=== PATIENT | male | born 1975 | race Hispanic/Latino ===

== ENCOUNTER 2019-10-06 09:45 | Emergency (ER) | payer BC, SELFPAY ==
[2019-10-06 11:21] LABS: Absolute Lymphocytes (CBC) 1.1 K/uL (0.7-4.9); Basophils % 0.4 % (0-1.3); Hematocrit 48.2 % (39.6-49.0); Lymphocytes % 17.9 % (15.3-44.8); MPV 8.7 fL (7.6-11.3); RBC Red Blood Cell Count 5.42 M/uL (4.33-5.43)
[2019-10-06 11:30] LABS: Protime INR 1.04
[2019-10-06 11:48] LABS: ALT/SGPT 55 U/L (12-78); AST/SGOT 24 U/L (15-37); Alkaline Phosphatase 57 U/L (45-117); BUN Blood Urea Nitrogen 15 mg/dL (7-18); Bicarbonate 30 mmol/L (21-32); Bilirubin Direct 0.1 mg/dL (0-0.2); Bilirubin Total 0.6 mg/dL (0.2-1.0); Glucose Level 160 mg/dL (74-106); Magnesium 2.4 mg/dL (1.8-2.4); NT PRO-BNP 21 pg/mL (<125); Sodium Level 140 mmol/L (136-145); Troponin (Emerg Dept Use Only) < 0.02 ng/mL (0.0-0.045)
--- NOTE | 2019-10-06 11:51 | EKG ---
Test Date: 2019-10-06 Test Time: 09:57:51 Utility Helicopter Repairer: KHADRA MEASUREMENT RESULTS: Intervals: Rate: 73 NH: 158 QRSD: 92 QT: 394 QTc: 434 [place]: P: 55 NH: 158 QRS: 17 T: 25 INTERPRETIVE STATEMENTS: Normal sinus rhythm Normal ECG Compared to ECG 08/06/2018 16:22:59 ST (T wave) deviation no longer present Electronically Signed On 10-06-19 11:51:12 GUARD MANAGER by Tanvir Bruce
--- NOTE | 2019-10-06 12:09 | RAD REPORT ---
EXAM DESCRIPTION: RAD - Chest Single View - 10/06/2019 12:04 pm CLINICAL HISTORY: CHEST PAIN COMPARISON: No comparisons TECHNIQUE: AP portable chest image was obtained 10/06/2019 12:04 pm . FINDINGS: Lungs are clear. Heart and vasculature are normal. No measurable pleural effusion and no p neumothorax. No acute bony abnormality seen. No acute aortic findings suspected. IMPRESSION: No acute cardiopulmonary process.
--- NOTE | 2019-10-06 12:22 | ER ---
Nurse's Notes [facility] Name: Vincent Kumari Age: 44 yrs Sex: Male : 1975 Arrival Date: 10/06/2019 Time: 09:47 Bed 23 Private MD: Diagnosis: Chest pain, unspecified Presentation: 10/06 09:52 Presenting complaint: Patient states: Reports that he started having chest pain Saturday sv and it kept getting worse with SOB, went to his PCP today and they did an EKG and sent him here. Reports feeling dizziness and SOB at this time but denies CP. Transition of care: patient was not received from another setting of care. Onset of symptoms was October 04, 2019. Risk Assessment: Do you want to hurt yourself or someone else? Patient reports no desire to harm self or others. Care prior to arrival: None. 09:52 Method Of Arrival: Ambulatory sv 09:52 Acuity: MAIDA 3 sv 10:20 Initial Sepsis Screen: Does the patient meet any 2 criteria? No. Patient's initial ca1 sepsis screen is negative. Does the patient have a suspected source of infection? No. Patient's initial sepsis screen is negative. Historical: - Allergies: 09:53 No Known Allergies; sv - PMHx: 09:53 None; sv - PSHx: 09:53 None; sv - Immunization history:: Adult Immunizations up to date. - Coronavirus screen:: The patient has NOT traveled to [place] in the past 14 days. Proceed with normal triage process as indicated. The patient has NOT had contact with known/suspected case of Coronavirus? Proceed with normal triage procedures. - Social history:: Smoking status: Patient denies any tobacco usage or history of. - Ebola Screening: : No symptoms or risks identified at this time. Screenin:06 Abuse screen: Denies threats or abuse. Denies injuries from another. Nutritional ca1 screening: No deficits noted. Tuberculosis screening: No symptoms or risk factors identified. Fall Risk IV access (20 points). Assessment: 10:06 General: Appears in no apparent distress. comfortable, Behavior is calm, cooperative, ca1 appropriate for age. Pain: Complains of pain in xyphoid area and mid-sternal area Pain does not radiate. Pain currently is 1 out of 10 on a pain scale. Quality of pain is described as sore Pain began 2-3 days ago. Is intermittent. Pain: Also complains of shortness of breath. Neuro: Level of Consciousness is awake, alert, obeys commands, Oriented to person, place, time, situation, Appropriate for age. Cardiovascular: Heart tones S1 S2 present Capillary refill < 3 seconds Patient's skin is warm and dry. Respiratory: Airway is patent Respiratory effort is even, unlabored, Respiratory pattern is regular, symmetrical, Breath sounds are clear bilaterally. GI: Abdomen is round non-distended, Bowel sounds present X 4 quads. Abd is soft and non tender X 4 quads. : No signs and/or symptoms were reported regarding the genitourinary system. EENT: No signs and/or symptoms were reported regarding the EENT system. Derm: Skin is intact, is healthy with good turgor, Skin is pink, warm \T\ dry. Musculoskeletal: Circulation, motion, and sensation intact. Capillary refill < 3 seconds. 11:10 Reassessment: Patient appears in no apparent distress at this time. Patient and/or ca1 family updated on plan of care and expected duration. Pain level reassessed. Patient is alert, oriented x 3, equal unlabored respirations, skin warm/dry/pink. 12:19 Reassessment: Patient appears in no apparent distress at this time. Patient and/or ca1 family updated on plan of care and expected duration. Pain level reassessed. Patient is alert, oriented x 3, equal unlabored respirations, skin warm/dry/pink. 12:50 Reassessment: Patient appears in no apparent distress at this time. Patient is alert, ca1 oriented x 3, equal unlabored respirations, skin warm/dry/pink. Vital Signs: 09:53 BP 159 / 86; Pulse 75; Resp 18; Temp 97.6; Pulse Ox 100% ; Weight 103.87 kg; Height 5 sv ft. 9 in. (175.26 cm); Pain 2/10; 11:10 BP 133 / 85; Pulse 64; Resp 16 S; Pulse Ox 98% on R/A; ca1 12:19 BP 123 / 89; Pulse 70; Resp 15 S; Pulse Ox 99% on R/A; ca1 12:50 BP 123 / 78; Pulse 63; Resp 16 S; Pulse Ox 100% on R/A; ca1 09:53 Body Mass Index 33.82 (103.87 kg, 175.26 cm) sv ED Course: 09:47 Patient arrived in ED. rg4 09:53 Triage completed. sv 09:54 Arm band placed on. sv 09:59 EKG done, by helpdesk technician. reviewed by Alfonso Lainez MD. at1 10:01 Ama Weeks, RN is Primary Nurse. ca1 10:06 Patient has correct armband on for positive identification. Placed in gown. Bed in low ca1 position. Call light in reach. Side rails up X 1. monitoring and evaluation advisor on. Pulse ox on. NIBP on. Warm blanket given. 10:06 No provider procedures requiring assistance completed. ca1 10:07 Alfonso Lainez MD is Attending Physician. kdr 11:10 Initial lab(s) drawn, by me, sent to lab. Inserted saline lock: 20 gauge in right ca1 antecubital area, using aseptic technique. Blood collected. 12:04 XRAY Chest (1 view) In Process Unspecified. EDMS 13:02 IV discontinued, intact, bleeding controlled, No redness/swelling at site. Pressure ca1 dressing applied. Administered Medications: No medications were administered Outcome: 12:22 Discharge ordered by . kdr 13:02 Discharged to home ambulatory, with significant other. ca1 13:02 Condition: stable 13:02 Discharge instructions given to patient, Instructed on discharge instructions, follow up and referral plans. medication usage, Demonstrated understanding of instructions, follow-up care, medications, Prescriptions given X 1. 13:02 Patient left the ED. ca1 Signatures: Dispatcher [employer] EDMS Haleigh Balderas RN RN Alfonso Lainez MD MD kdr Cherise Barlow, licensed pesticide applicator EKG Tat1 Bekah Ross rg4 Ama Weeks, RN RN ca1
--- NOTE | 2019-10-06 12:22 | EDPHYS ---
Physician Documentation [facility] Name: Vincent Kumari Age: 44 yrs Sex: Male : 1975 Arrival Date: 10/06/2019 Time: 09:47 Bed 23 Private MD: ED Physician Alfonso Lainez HPI: 10/06 16:29 This 44 yrs old Male presents to ER via Ambulatory with complaints of Abnormal kdr EKG. 16:29 The patient or guardian reports chest pain that is located primarily in the anterior kdr chest wall, left. Onset: , Saturday. The pain does not radiate. Associated signs and symptoms: Pertinent positives: None. The chest pain is described as aching, burning, dull, a pressure. Duration: The patient or guardian reports multiple episodes, that are intermittent, that wax and wane, with no pattern. Modifying factors: The symptoms are alleviated by nothing. the symptoms are aggravated by nothing. Severity of pain: At its worst the pain was mild in the emergency department the pain has improved. The patient has experienced similar episodes in the past, The has been ongoing for months and is now . The patient has not recently seen a physician. Historical: - Allergies: 09:53 No Known Allergies; sv - PMHx: 09:53 None; sv - PSHx: 09:53 None; sv - Immunization history:: Adult Immunizations up to date. - Coronavirus screen:: The patient has NOT traveled to [place] in the past 14 days. Proceed with normal triage process as indicated. The patient has NOT had contact with known/suspected case of Coronavirus? Proceed with normal triage procedures. - Social history:: Smoking status: Patient denies any tobacco usage or history of. - Ebola Screening: : No symptoms or risks identified at this time. ROS: 16:29 Constitutional: Negative for fever, chills, and weight loss, Eyes: Negative for injury, kdr pain, redness, and discharge, ENT: Negative for injury, pain, and discharge, Neck: Negative for injury, pain, and swelling, Respiratory: Negative for shortness of breath, cough, wheezing, and pleuritic chest pain, Abdomen/GI: Negative for abdominal pain, nausea, vomiting, diarrhea, and constipation, Back: Negative for injury and pain, : Negative for injury, bleeding, discharge, and swelling, MS/Extremity: Negative for injury and deformity, Skin: Negative for injury, rash, and discoloration, Neuro: Negative for headache, weakness, numbness, tingling, and seizure activity. Psych: Negative for depression, anxiety, suicide ideation, homicidal ideation, and hallucinations, Allergy/Immunology: Negative for hives, rash, and allergies, Endocrine: Negative for neck swelling, polydipsia, polyuria, polyphagia, and marked weight changes, Hematologic/Lymphatic: Negative for swollen nodes, abnormal bleeding, and unusual bruising. 16:29 Cardiovascular: Positive for chest pain, of the left clavicle and anterior aspect of left upper chest. Exam: 16:29 Constitutional: This is a well developed, well nourished patient who is awake, alert, kdr and in no acute distress. Head/Face: Normocephalic, atraumatic. Eyes: Pupils equal round and reactive to light, extra-ocular motions intact. Lids and lashes normal. Conjunctiva and sclera are non-icteric and not injected. Cornea within normal limits. Periorbital areas with no swelling, redness, or edema. Neck: Trachea midline, no thyromegaly or masses palpated, and no cervical lymphadenopathy. Supple, full range of motion without nuchal rigidity, or vertebral point tenderness. No Meningismus. Chest/axilla: Normal chest wall appearance and motion. Nontender with no deformity. No lesions are appreciated. Cardiovascular: Regular rate and rhythm with a normal S1 and S2. No gallops, murmurs, or rubs. Normal PMI, no JVD. No pulse deficits. Respiratory: Lungs have equal breath sounds bilaterally, clear to auscultation and percussion. No rales, rhonchi or wheezes noted. No increased work of breathing, no retractions or nasal flaring. Abdomen/GI: Soft, non-tender, with normal bowel sounds. No distension or tympany. No guarding or rebound. No evidence of tenderness throughout. Back: No spinal tenderness. No costovertebral tenderness. Full range of motion. Skin: Warm, dry with normal turgor. Normal color with no rashes, no lesions, and no evidence of cellulitis. MS/ Extremity: Pulses equal, no cyanosis. Neurovascular intact. Full, normal range of motion. Neuro: Awake and alert, GCS 15, oriented to person, place, time, and situation. Cranial nerves II-XII grossly intact. Motor strength 5/5 in all extremities. Sensory grossly intact. Cerebellar exam normal. Normal gait. Psych: Awake, alert, with orientation to person, place and time. Behavior, mood, and affect are within normal limits. Vital Signs: 09:53 BP 159 / 86; Pulse 75; Resp 18; Temp 97.6; Pulse Ox 100% ; Weight 103.87 kg; Height 5 sv ft. 9 in. (175.26 cm); Pain 2/10; 11:10 BP 133 / 85; Pulse 64; Resp 16 S; Pulse Ox 98% on R/A; ca1 12:19 BP 123 / 89; Pulse 70; Resp 15 S; Pulse Ox 99% on R/A; ca1 12:50 BP 123 / 78; Pulse 63; Resp 16 S; Pulse Ox 100% on R/A; ca1 09:53 Body Mass Index 33.82 (103.87 kg, 175.26 cm) sv MDM: 12:22 Patient medically screened. kdr 16:29 Differential diagnosis: abnormal EKG, acute myocardial infarction, acute pericarditis, kdr anxiety, myocarditis, pancreatitis. Data reviewed: vital signs, nurses notes, lab test result(s), EKG, radiologic studies. Data interpreted: allergy and immunology chief:. 10/06 10:51 Order name: Basic Metabolic Panel; Complete Time: 12:20 [facility] 10/06 10:51 Order name: CBC with Diff; Complete Time: 11:34 [facility] 10/06 10:51 Order name: LFT's; Complete Time: 12:20 [facility] 10/06 10:51 Order name: Magnesium; Complete Time: 12:20 [facility] 10/06 10:51 Order name: NT PRO-BNP; Complete Time: 12:20 [facility] 10/06 10:51 Order name: PT-INR; Complete Time: 12:20 [facility] 10/06 09:59 Order name: EKG; Complete Time: 10:01 10/06 09:59 Order name: EKG - Nurse/Tech; Complete Time: 10:02 10/06 10:51 Order name: Troponin (emerg Dept Use Only); Complete Time: 12:20 [facility] 10/06 10:51 Order name: XRAY Chest (1 view); Complete Time: 12:20 [facility] 10/06 10:51 Order name: Cardiac monitoring; Complete Time: 11:30 [facility] 10/06 10:51 Order name: IV Saline Lock; Complete Time: [facility] 10/06 10:51 Order name: Labs collected and sent; Complete Time: [facility] 10/06 10:51 Order name: O2 Per Protocol; Complete Time: [facility] 10/06 10:51 Order name: O2 Sat Monitoring; Complete Time: kdr Administered Medications: No medications were administered Disposition: 10/06/19 12:22 Discharged to Home. Impression: Chest pain, unspecified. - Condition is Stable. - Discharge Instructions: Nonspecific Chest Pain, [id number]. - Prescriptions for Pepcid 20 mg Oral Tablet - take 1 tablet by ORAL route every 12 hours for 10 days; 20 tablet. - Medication Reconciliation Form, Thank You Letter, Work release form, Family Work Release form. - Follow up: Private Physician; When: 2 - 3 days; Reason: If symptoms return, Further diagnostic work-up, Recheck today's complaints, Continuance of care, Re-evaluation by your physician. - Problem is new. - Symptoms have improved. Signatures: Dispatcher [employer] EDHaleigh Frederick RN RN sv Alfonso Lainez MD MD [facility] Acjillian, SHABBIR Serrato RN ca1 Corrections: (The following items were deleted from the chart) 13:02 12:22 10/06/2019 12:22 Discharged to Home. Impression: Chest pain, unspecified. ca1 Condition is Stable. Forms are Medication Reconciliation Form, Thank You Letter, Antibiotic Education, Prescription Opioid Use. Follow up: Private Physician; When: 2 - 3 days; Reason: If symptoms return, Further diagnostic work-up, Recheck today's complaints, Continuance of care, Re-evaluation by your physician. Problem is new. Symptoms have improved. kdr
[2019-10-06 13:23] VITALS: TEMP 97.6
[2019-10-06 13:27] VITALS: BP 123/78; O2SAT 100
== END 2019-10-06 13:02 | disposition home or self-care (01) ==
LOC: ER 09:45
DX: R07.9 Chest pain, unspecified (principal)
CPT/HCPCS: 36415; 71045; 80048; 80076; 83735; 83880; 84484; 85025; 85610; 93005; 99284

== ENCOUNTER 2020-12-10 23:03 | Emergency (ER) | payer BC ==
--- OUTSIDE RECORDS SUMMARY | 2020-12-10 23:06 | XMS REPORT | Continuity of Care Document ---
:1975 Author Organization [facility] t Address [address] [place] [address] [address]. [address] [place] [address] Care Team Providers Name Role Phone Bright EDMONDSON Primary Care Physician Lab, Fam Pob I Attending Clinician Unavailable Problems This patient has no known problems. Allergies, Adverse Reactions, Alerts This patient has no known allergies or adverse reactions. Social History Social Habit Start Date Stop Date Quantity Comments Source Sex Assigned At [birth year] [facility] 00:00:00 00:00:00 Medications This patient has no known medications. Procedures This patient has no known procedures. Plan of Care Planned Activity Planned Date Details Comments Source Future Scheduled 2021-03-12 INFLUENZA VACCINE Pooja michelle [facility] Test 00:00:00 [code = INFLUENZA VACCINE] Future Scheduled 1991 Hepatitis C [place] [facility] Test 00:00:00 screening (procedure) [code = 529854736] Future Scheduled 1989 COVID-19 VACCINE (1) Moiz mitchell [facility] Test 00:00:00 [code = COVID-19 VACCINE (1)] Encounters Start End Encounter Admission Attending Care Care Encounter Source Date/Time Date/Time Type Type Clinicians Facility Department ID 2020-07-08 2020-07-08 Laboratory Lab, Adc [facility] [id number] 08:00:58 08:20:58 Only Fam [facility] [id number] [place] [id number] Professio [id number] nal [address] 2020-03-09 2020-03-09 Laboratory Lab, Adc [facility] [id number] 11:12:55 11:32:[address] [facility] I [facility] [id number] [place] [id number] Onel [phone] [facility] [address] Results This patient has no known results.
[2020-12-11 00:10] LABS: Absolute Lymphocytes (CBC) 1.6 K/uL (0.7-4.9); Basophils % 0.4 % (0-1.3); Hematocrit 44.9 % (39.6-49.0); Lymphocytes % 21.4 % (15.3-44.8); RBC Red Blood Cell Count 5.12 M/uL (4.33-5.43)
[2020-12-11 00:11] LABS: Protime INR 1.02
[2020-12-11 00:30] LABS: ALT/SGPT 54 U/L (12-78); AST/SGOT 18 U/L (15-37); Alkaline Phosphatase 84 U/L (45-117); BUN Blood Urea Nitrogen 22 mg/dL (7-18); Bicarbonate 27 mmol/L (21-32); Bilirubin Direct 0.1 mg/dL (0-0.2); Bilirubin Total 0.3 mg/dL (0.2-1.0); Glucose Level 117 mg/dL (74-106); Magnesium 2.3 mg/dL (1.8-2.4); NT PRO-BNP 29 pg/mL (<125); Protein, Total 6.9 g/dL (6.4-8.2); Sodium Level 142 mmol/L (136-145); Troponin (Emerg Dept Use Only) < 0.02 ng/mL (0.0-0.045)
--- NOTE | 2020-12-11 02:02 | ER ---
Nurse's Notes [facility] Name: Vincent Kumari Age: 45 yrs Sex: Male : 1975 Arrival Date: 12/10/2020 Time: 23:07 Bed 16 Private MD: Hema Adhikari E Diagnosis: Chest pain, unspecified Presentation: 12/10 23:16 Chief complaint: Patient states: SYMPTOMS STARTED SATURDAY LAST WEEK, SWELLING OF THE rv RIGHT LEG, LAURO NEGATIVE FOR CLOTS, SATURDAY, STARTED HAVING CHEST PAIN, BLOOD TEST AND CHEST X-RAY WAS DONE, NEGATIVE RESULTS, GABAPENTIN PRESCRIBED, CHEST PAIN IS NOT GETTING BETTER. Coronavirus screen: Client denies travel out of the [place] in the last 14 days. Ebola Screen: No symptoms or risks identified at this time. Initial Sepsis Screen: Does the patient meet any 2 criteria? No. Patient's initial sepsis screen is negative. Does the patient have a suspected source of infection? No. Patient's initial sepsis screen is negative. Risk Assessment: Do you want to hurt yourself or someone else? Patient reports no desire to harm self or others. Onset of symptoms was November 30, 2020. 23:16 Method Of Arrival: Ambulatory rv 23:16 Acuity: MAIDA 3 rv Triage Assessment: 23:20 General: Appears comfortable, Behavior is calm, cooperative. Pain: Complains of pain in rv chest Pain does not radiate. Quality of pain is described as stabbing. Neuro: Level of Consciousness is awake, alert, obeys commands, Oriented to person, place, time, situation. Cardiovascular: Patient's skin is warm and dry. Respiratory: Airway is patent Respiratory effort is even, unlabored, Breath sounds are clear bilaterally. Derm: Skin is intact. Historical: - Allergies: 23:20 No Known Allergies; rv - PMHx: 23:20 None; rv - PSHx: 23:20 None; rv - Immunization history:: Adult Immunizations up to date. - Social history:: Smoking status: Patient/guardian denies using tobacco. Screenin:22 Abuse screen: Denies threats or abuse. Denies injuries from another. Nutritional rv screening: No deficits noted. Tuberculosis screening: No symptoms or risk factors identified. Fall Risk None identified. Assessment: 23:21 Reassessment: PATIENT REFUSED TO HAVE BLOOD TESTS, PREFERS TO HAVE EKG DONE ONLY. Pain: rv Pain began 10 DAYS AGO. 23:40 Reassessment: seen and examined by provider, patient agreed for blood exam. rr5 12/11 00:10 Reassessment: refused for xray. rr5 01:08 Reassessment: Patient appears in no apparent distress at this time. Patient is alert, rr5 oriented x 3, equal unlabored respirations, skin warm/dry/pink. provider spoke to patient, he agreed for the xray. 02:05 Reassessment: Patient appears in no apparent distress at this time. Patient is alert, rr5 oriented x 3, equal unlabored respirations, skin warm/dry/pink. discharge instruction given and explained without complaints made. Vital Signs: 12/10 23:16 BP 166 / 73; Pulse 60; Resp 16; Temp 98.2; Pulse Ox 99% on R/A; rv 12/11 00:29 BP 145 / 85; Pulse 64; Resp 19; Pulse Ox 98% ; rr5 01:05 BP 126 / 74; Pulse 69; Resp 17; Pulse Ox 100% ; rr5 02:00 BP 136 / 85; Pulse 60; Resp 18; Pulse Ox 98% ; rr5 ED Course: 12/10 23:07 Patient arrived in ED. am4 23:07 Hema Adhikari MD is Private Physician. am4 23:08 Douglas Morris, SHABBIR is Primary Nurse. rv 23:09 Brad Childs MD is Attending Physician. mh7 23:20 Triage completed. rv 23:21 Arm band placed on right wrist. Patient placed in the treatment room, on a stretcher, rv Patient notified of wait time. 23:22 Patient has correct armband on for positive identification. Pulse ox on. NIBP on. rv 23:22 No provider procedures requiring assistance completed. Patient did not have IV access rv during this emergency room visit. Patient maintains SpO2 saturation greater than 95% on room air. 23:49 Inserted saline lock: 20 gauge in right forearm, using aseptic technique. Blood rr5 collected. 12/11 01:40 Chest Single View In Process Unspecified. EDMS 02:23 IV discontinued, intact, bleeding controlled, No redness/swelling at site. Pressure rr5 dressing applied. Administered Medications: No medications were administered Outcome: 02:01 Discharge ordered by . mh7 02:05 Discharged to home ambulatory, with family. rr5 02:05 Condition: stable rr5 02:05 Discharge instructions given to patient, Instructed on discharge instructions, follow up and referral plans. Demonstrated understanding of instructions, follow-up care. 02:09 Patient left the ED. rr5 Signatures: Dispatcher [employer] EDMS Douglas Morris RN RN rv Levy Multani RN RN rr5 Brad Childs MD MD 7 Sonia Vargas Corrections: (The following items were deleted from the chart) 02:25 02:00 BP 126 / 74; Pulse 69bpm; Resp 17bpm; Pulse Ox 100%; rr5 rr5
--- NOTE | 2020-12-11 02:02 | EDPHYS ---
Physician Documentation [facility] Name: Vincent Kumari Age: 45 yrs Sex: Male : 1975 Arrival Date: 12/10/2020 Time: 23:07 Bed 16 Private MD: Hema Adhikari E ED Physician Brad Childs HPI: 12/10 23:34 This 45 yrs old Male presents to ER via Ambulatory with complaints of Chest mh7 Pain. 23:34 The patient or guardian reports chest pain that is located primarily in the anterior mh7 chest wall, bilaterally. Onset: 10 day(s) ago. The pain does not radiate. 23:35 Associated signs and symptoms: Pertinent positives: cough, Pertinent negatives: mh7 abdominal pain, diaphoresis, dizziness, headache, lightheadedness, nausea, near syncope, palpitations, recent travel, shortness of breath, syncope, vomiting. The chest pain is described as stabbing. Duration: The patient or guardian reports multiple episodes, that are intermittent, that wax and wane, with no pattern. Modifying factors: The symptoms are alleviated by nothing. the symptoms are aggravated by nothing. 23:36 Severity of pain: At its worst the pain was moderate 7 day(s) ago, in the emergency [facility] department the pain has improved mildly. The patient has been recently seen by a physician: the patient's primary care provider. Historical: - Allergies: 23:20 No Known Allergies; rv - PMHx: 23:20 None; rv - PSHx: 23:20 None; rv - Immunization history:: Adult Immunizations up to date. - Social history:: Smoking status: Patient/guardian denies using tobacco. ROS: 23:36 Constitutional: Negative for fever, chills, and weight loss, Eyes: Negative for injury, mh7 pain, redness, and discharge, ENT: Negative for injury, pain, and discharge, Neck: Negative for injury, pain, and swelling, Abdomen/GI: Negative for abdominal pain, nausea, vomiting, diarrhea, and constipation, Back: Negative for injury and pain, : Negative for injury, bleeding, discharge, and swelling, MS/Extremity: Negative for injury and deformity, Skin: Negative for injury, rash, and discoloration, Neuro: Negative for headache, weakness, numbness, tingling, and seizure, Psych: Negative for depression, anxiety, suicide ideation, homicidal ideation, and hallucinations, Allergy/Immunology: Negative for hives, rash, and allergies, Endocrine: Negative for neck swelling, polydipsia, polyuria, polyphagia, and marked weight changes, Hematologic/Lymphatic: Negative for swollen nodes, abnormal bleeding, and unusual bruising. Exam: 23:36 Constitutional: This is a well developed, well nourished patient who is awake, alert, mh7 and in no acute distress. Head/Face: Normocephalic, atraumatic. Eyes: Pupils equal round and reactive to light, extra-ocular motions intact. Lids and lashes normal. Conjunctiva and sclera are non-icteric and not injected. Cornea within normal limits. Periorbital areas with no swelling, redness, or edema. Neck: Trachea midline, no thyromegaly or masses palpated, and no cervical lymphadenopathy. Supple, full range of motion without nuchal rigidity, or vertebral point tenderness. No Meningismus. Chest/axilla: Normal chest wall appearance and motion. Nontender with no deformity. No lesions are appreciated. Cardiovascular: Regular rate and rhythm with a normal S1 and S2. No gallops, murmurs, or rubs. Normal PMI, no JVD. No pulse deficits. Respiratory: Lungs have equal breath sounds bilaterally, clear to auscultation and percussion. No rales, rhonchi or wheezes noted. No increased work of breathing, no retractions or nasal flaring. Abdomen/GI: Soft, non-tender, with normal bowel sounds. No distension or tympany. No guarding or rebound. No evidence of tenderness throughout. Back: No spinal tenderness. No costovertebral tenderness. Full range of motion. Skin: Warm, dry with normal turgor. Normal color with no rashes, no lesions, and no evidence of cellulitis. MS/ Extremity: Pulses equal, no cyanosis. Neurovascular intact. Full, normal range of motion. Neuro: Awake and alert, GCS 15, oriented to person, place, time, and situation. Cranial nerves II-XII grossly intact. Motor strength 5/5 in all extremities. Sensory grossly intact. Cerebellar exam normal. Normal gait. Psych: Awake, alert, with orientation to person, place and time. Behavior, mood, and affect are within normal limits. Vital Signs: 23:16 BP 166 / 73; Pulse 60; Resp 16; Temp 98.2; Pulse Ox 99% on R/A; rv 12/11 00:29 BP 145 / 85; Pulse 64; Resp 19; Pulse Ox 98% ; rr5 01:05 BP 126 / 74; Pulse 69; Resp 17; Pulse Ox 100% ; rr5 02:00 BP 136 / 85; Pulse 60; Resp 18; Pulse Ox 98% ; rr5 MDM: 01:59 Differential diagnosis: acute myocardial infarction, acute pericarditis, anxiety, mh7 coronary artery disease chest wall pain, congestive heart failure costochondritis, myocarditis, pericarditis, pleurisy, pneumonia, pulmonary embolus. HEART Score: History: Slightly Suspicious (0), ECG: Normal (0), Age: > 45 and < 65 years (1), Risk Factors: No Risk Factors Known (0), Troponin: < or = 1 x Normal Limit (0), Total Score = 1. Data reviewed: vital signs, nurses notes, old medical records, lab test result(s), cardiac enzymes, CBC, electrolytes, urinalysis, EKG, radiologic studies, plain films. Data interpreted: Pulse oximetry: on room air is 98 %. Interpretation: normal. Counseling: I had a detailed discussion with the patient and/or guardian regarding: the historical points, exam findings, and any diagnostic results supporting the discharge/admit diagnosis, lab results, radiology results, the need for outpatient follow up, to return to the emergency department if symptoms worsen or persist or if there are any questions or concerns that arise at home. Response to treatment: the patient's symptoms have markedly improved after treatment. 02:01 Patient medically screened. [facility] 12/10 23:41 Order name: Basic Metabolic Panel; Complete Time: 00:35 [facility] 12/10 23:41 Order name: CBC with Diff; Complete Time: 00:35 [facility] 12/10 23:41 Order name: LFT's; Complete Time: 00:35 [facility] 12/10 23:41 Order name: Magnesium; Complete Time: 00:35 [facility] 12/10 23:41 Order name: NT PRO-BNP; Complete Time: 00:35 [facility] 12/10 23:41 Order name: PT-INR; Complete Time: 01:38 [facility] 12/10 23:41 Order name: Troponin (emerg Dept Use Only); Complete Time: 00:35 [facility] 12/10 23:41 Order name: EKG; Complete Time: 23:42 [facility] 12/10 23:41 Order name: Cardiac monitoring; Complete Time: 00:09 [facility] 12/10 23:41 Order name: EKG - Nurse/Tech; Complete Time: 00:10 [facility] 12/11 01:10 Order name: Chest Single View [facility] 12/11 01:11 Order name: D-Dimer; Complete Time: 01:38 [facility] 12/10 23:41 Order name: IV Saline Lock; Complete Time: 00:10 [facility] 12/10 23:41 Order name: Labs collected and sent; Complete Time: 00:10 [facility] 12/10 23:41 Order name: O2 Per Protocol; Complete Time: 00:10 [facility] 12/10 23:41 Order name: O2 Sat Monitoring; Complete Time: 00:10 [facility] Administered Medications: No medications were administered Disposition: 12/11/20 02:01 Discharged to Home. Impression: Chest pain, unspecified. - Condition is Stable. - Discharge Instructions: Nonspecific Chest Pain, [id number]. - Medication Reconciliation Form, Thank You Letter, Antibiotic Education, Prescription Opioid Use form. - Follow up: Private Physician; When: 1 - 2 days; Reason: Worsening of condition, Recheck today's complaints, Continuance of care, Re-evaluation by your physician. - Problem is an ongoing problem. - Symptoms have improved. Signatures: Dispatcher [employer] [facility] Douglas Morris RN RN rv Levy Multani RN RN rr5 Brad Childs MD MD mh7 Corrections: (The following items were deleted from the chart) 00:24 12/10 23:42 Chest Single View+RAD.RAD.BRZ ordered. [facility] 12/11 01:11 01:08 D-DIMER+COAG.LAB.BRZ ordered. [facility] 02:09 02:01 12/11/2020 02:01 Discharged to Home. Impression: Chest pain, unspecified. rr5 Condition is Stable. Forms are Medication Reconciliation Form, Thank You Letter, Antibiotic Education, Prescription Opioid Use. Follow up: Private Physician; When: 1 - 2 days; Reason: Worsening of condition, Recheck today's complaints, Continuance of care, Re-evaluation by your physician. Problem is an ongoing problem. Symptoms have improved. mh7
[2020-12-11 02:19] VITALS: TEMP 98.2
[2020-12-11 02:21] VITALS: BP 145/85; O2SAT 98
--- NOTE | 2020-12-11 11:49 | RAD REPORT ---
EXAM DESCRIPTION: RAD - Chest Single View - 12/11/2020 1:41 am CLINICAL HISTORY: CHEST PAIN Chest pain. COMPARISON: Chest Pa And Lat (2 Views) dated 12/01/2020; Chest Single View dated 10/06/2019 FINDINGS: Portable technique limits examination quality. The lungs are grossly clear. The heart is normal in size. No displaced fractures. IMPRESSION: No acute intrathoracic process suspected.
--- NOTE | 2020-12-12 09:21 | EKG ---
Test Date: 2020-12-10 Test Time: 23:20:41 Licensed Professional Counselor: JANNETTE MEASUREMENT RESULTS: Intervals: Rate: 59 ME: 166 QRSD: 94 QT: 420 QTc: 415 [place]: P: 34 ME: 166 QRS: 20 T: 13 INTERPRETIVE STATEMENTS: Sinus bradycardia ST elevation, probably due to early repolarization Borderline ECG Compared to ECG 10/06/2019 09:57:51 ST (T wave) deviation now present Early repolarization now present Sinus rhythm no longer present Electronically Signed On 12-12-20 09:17:27 CDT by Tanvir Bruce
== END 2020-12-11 02:09 | disposition home or self-care (01) ==
LOC: ER 23:03
DX: R07.9 Chest pain, unspecified (principal)
CPT/HCPCS: 36415; 71045; 80048; 80076; 83735; 83880; 84484; 85025; 85379; 85610; 93005; 99284

== ENCOUNTER 2021-11-16 11:00 | Day surgery (SDC) | payer BC, SELFPAY ==
[2021-11-14 13:33] LABS: Absolute Lymphocytes (CBC) 1.2 K/uL (0.7-4.9); Hematocrit 44.2 % (39.6-49.0); Lymphocytes % 16.1 % (15.3-44.8); MPV 8.4 fL (7.6-11.3); RBC Red Blood Cell Count 5.02 M/uL (4.33-5.43)
[2021-11-14 13:37] LABS: Protime INR 1.08
[2021-11-14 13:43] LABS: Potassium 3.9 mmol/L (3.5-5.1)
--- NOTE | 2021-11-14 13:48 | RAD REPORT ---
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 COMPARISON: Chest Single View dated 12/11/2020; Chest Pa And Lat (2 Views) dated 12/01/2020; Chest Sing le View dated 10/06/2019 FINDINGS: The lungs are clear. The heart is normal in size. No displaced fractures. IMPRESSION: No acute or concerning finding suspected.
[~2021-11-16 11:00] MED LIST: HEPA 1000U/500MLS 2,000 UNIT/1,000 ML BAG IV ONE
[2021-11-16] MEDS ORDERED: HEPARIN 5000 UNIT/ML 1 ML VIAL ONE ×2 (11:08→12:45)
[2021-11-16] MEDS ORDERED: NA CHLORIDE 0.9% 500 ML ONE (11:14)
[2021-11-16] MEDS ORDERED: MIDAZOLAM HCL 2 MG/2 ML INJ ONE (12:45)
[2021-11-16] MEDS ORDERED: FENTANYL CITR 100 MCG/2 ML ONE (12:45)
[2021-11-16] MEDS ORDERED: VERAPAMIL HCL 10 MG/4 ML VIAL IV ONE (12:46)
[2021-11-16 14:11] VITALS: O2SAT 99
[2021-11-16 14:49] VITALS: BP 116/63
[2021-11-16 16:21] LABS: Blood Gas Oxyhemoglobin 77.5 % (94-97); Blood O2 Saturation 79.2 % (92-98.5)
--- NOTE | 2021-11-16 23:41 | OP ---
Date of Procedure: 11/16/2021 Surgeon: ADRY YEH Procedures Performed: 1.Selective coronary angiogram. 2.Right heart catheterization. Indication: Ongoing chest pain with minimal exertion, suggestive of unstable angina. Access: 1.Right radial artery 6-Guinean, closed with TR band. 2.Right IJ 7-Guinean, closed with manual pressure. Complications: None. Bleeding: Less than 10 mL. Total Sedation Time: 25 minutes. Description Of Procedure: After risks, benefits, and alternatives were explained, the patient agreed to procedure and signed a formal consent. The patient was brought into the cardiac catheterization laboratory, prepped and draped in usual sterile fashion. Then, I gave fentanyl and Versed in increme ntal doses to achieve adequate moderate sedation. Then, I accessed the right radial artery using ped iatric micropuncture kit and placed a 6-Guinean slender sheath with ultrasound guidance and micropunct ure kit to access right IJ and place 7-Guinean slender sheath and took a 7-Guinean balloon tipped Ulman catheter through the IJ to the RA, RV, PA, and wedge recorded waveform and pressure and then obtained PA saturation and removed the Ulman. Then, I took a 5-Guinean Elida 4.0 catheter through the radial a ccess into the aortic root over a J-wire, engaged left main and right coronary artery, took standard views and removed the catheter and sheath, placed TR band with good hemostasis. Findings: 1.Left main: Large and normal. 2.LAD: Large and normal, normal diagonal branches. 3.Left circumflex: Large dominant and normal. 4.RCA: Small nondominant and normal. Right Heart Catheterization: RA pressure is 3 mmHg. RV pressure is 37/1, mean of 6. PA pressure is 32/13, mean of 22. Pulmonary wedge pressure was 30 mmHg. Conclusion: 1.Normal coronary arteries. 2.Normal filling pressures. Plan: Medical management. SR/MODL Voice ID: [id number] Report ID: [id number]
== END 2021-11-16 14:56 | disposition home or self-care (01) ==
LOC: CCL 11:00
PROVIDERS: ATTEND Internal Medicine
DX: R07.9 Chest pain, unspecified (principal); I10 Essential (primary) hypertension; R06.02 Shortness of breath; Z20.822 Contact with and (suspected) exposure to COVID-19
CPT/HCPCS: 85025; 80048; 36415 ×2; 85610; 85379; 85730; 71046; 93456; 76937; 82805; U0003; C1893; J1644 ×2; J2250; J3010; J7040; Q9966

== ENCOUNTER 2025-05-03 07:27 | Day surgery (SDC) | payer OTHER ==
[2025-04-30 16:13] LABS: Absolute Lymphocytes (CBC) 1.5 K/uL (0.7-4.9); Hematocrit 45.4 % (39.6-49.0); Hemoglobin 15.5 g/dL (13.6-17.9); MCH 29.9 pg (27.0-35.0); MCHC 34.1 g/dL (32.0-36.0); MCV 87.8 fL (80-100); MPV 8.1 fL (7.6-11.3); Nucleated RBC Absolute Count 0.0 (0-0); Nucleated Red Blood Cells % 0.1 % (0-0); RBC Red Blood Cell Count 5.17 M/uL (4.33-5.43); White Blood Count 7.10 thou/uL (4.3-10.9)
[2025-04-30 16:31] LABS: Anion Gap 5.5 mEq/L (5.0-15.0); BUN Blood Urea Nitrogen 25.0 mg/dL (7-18); Glucose Level 102.0 mg/dL (74-106); Potassium 4.5 mEq/L (3.5-5.1)
--- NOTE | 2025-04-30 17:17 | RAD REPORT ---
EXAM: Chest Pa And Lat (2 Views) HISTORY: 49 years Male PRE PROCEDURE COMPARISON: 12/23/2023 FINDINGS: LUNGS/PLEURA: The lungs are clear. No pleural effusions or pneumothorax. No pulmonary edema. CARDIAC/MEDIASTINUM: The cardiac silhouette is within normal limits. UPPER ABDOMEN: No significant abnormality. BONES: No acute abnormality. LINES/TUBES/OTHER: N/A IMPRESSION: No evidence of acute cardiopulmonary disease.
[2025-05-03] MEDS ORDERED: FENTANYL CITR 100 MCG/2 ML ONE (08:07)
[2025-05-03] MEDS ORDERED: LIDOCAINE 1% MPF 5 ML VIAL ONE (08:08)
[2025-05-03] MEDS: Ringers Lactate 1,000 ML IV ONE (08:10)
[2025-05-03 10:24] VITALS: BP 123/69; TEMP 97.9; O2SAT 98
== END 2025-05-03 09:45 | disposition home or self-care (01) ==
LOC: OR 07:27
PROVIDERS: ATTEND Surgery
PROC: 0DBH8ZX Excision of Cecum, Via Natural or Artificial Opening Endoscopic, Diagnostic (ICD-10-PCS; 2025-05-03)
PROC: 0DBK8ZX Excision of Ascending Colon, Via Natural or Artificial Opening Endoscopic, Diagnostic (ICD-10-PCS; principal; 2025-05-03 08:30)
DX: Z12.11 Encounter for screening for malignant neoplasm of colon (principal); K63.5 Polyp of colon; K57.30 Diverticulosis of large intestine without perforation or abscess without bleeding; K64.4 Residual hemorrhoidal skin tags; K64.8 Other hemorrhoids
CPT/HCPCS: 93005; 85025; 80048; 36415; 88305; 71046; 45384; J2704; J2003; J7120; 88304; J3010

== ENCOUNTER 2025-05-14 10:14 | Emergency (ER) | payer OTHER ==
[2025-05-14] MEDS ORDERED: NA CHLORIDE 0.9% 1,000 ML ONE ×2 (11:09→11:46)
[2025-05-14 11:13] LABS: Absolute Lymphocytes (CBC) 1.1 K/uL (0.7-4.9); Hematocrit 46.8 % (39.6-49.0); Hemoglobin 16.1 g/dL (13.6-17.9); MCH 30.5 pg (27.0-35.0); MCHC 34.4 g/dL (32.0-36.0); MCV 88.4 fL (80-100); MPV 8.4 fL (7.6-11.3); Nucleated RBC Absolute Count 0.0 (0-0); Nucleated Red Blood Cells % 0.1 % (0-0); RBC Red Blood Cell Count 5.29 M/uL (4.33-5.43); White Blood Count 6.50 thou/uL (4.3-10.9)
[2025-05-14 11:20] LABS: Urine Microscopic Reflex YN NO UMIC
[2025-05-14 11:22] LABS: PT Prothrombin Time 11.9 SECONDS (10-13.0); PTT, Activated Partial Thromb 33.0 SECONDS (27.2-37.4); Protime INR 1.05
[2025-05-14 11:37] LABS: ALT/SGPT 53.0 U/L (16-61); AST/SGOT 20.0 U/L (15-37); Albumin 3.7 g/dL (3.4-5.0); Albumin/Globulin Ratio 1.4 (1.1-1.8); Alkaline Phosphatase 73.0 U/L (45-117); Anion Gap 7.2 mEq/L (5.0-15.0); BUN Blood Urea Nitrogen 17.0 mg/dL (7-18); Globulin 2.7 g/dL (2.3-3.5); Glucose Level 123.0 mg/dL (74-106); Potassium 4.2 mEq/L (3.5-5.1); Troponin High Sensitivity 3.4 pg/mL (<58.9)
--- NOTE | 2025-05-14 11:41 | RAD REPORT ---
EXAM: CT Head Brain Wo Cont HISTORY: DIZZINESS COMPARISON: None TECHNIQUE: Multiple contiguous axial images were obtained for a CT of the brain without contrast. Sag ittal and coronal reformats were performed. One or more of the following dose reduction techniques were used: Automated exposure control, adjus tment of the mA and kV according to patient size, and iterative reconstruction. Unless otherwise specified, incidental findings do not require dedicated imaging follow-up. FINDINGS: No evidence of hydrocephalus, intracranial hemorrhage, or extra-axial fluid collection. The brain is normal in morphology. The calvarium is intact. The visualized paranasal sinuses and mastoid air cells are essentially clear . IMPRESSION: No evidence of acute intracranial abnormality.
--- NOTE | 2025-05-14 13:22 | ER ---
Nurse's Notes [facility] Name: Vincent Kumari Age: 50 yrs Sex: Male : 1975 Arrival Date: 05/14/2025 Time: 10:14 Bed 13 Private MD: Diagnosis: Dehydration Presentation: 05/14 10:19 Chief complaint: Patient states: 1 WEEK OF DIZZINESS, NAUSEA, UNABLE TO CONCENTRATE, dd2 BLURRED VISION AND SHORTNESS OF BREATH. REPORTS WENT TO SEE DR. VALLEJO SATURDAY AND DR. HOLT TODAY, WAS SENT TO ER BY DR. HOLT. Coronavirus screen: At this time, the client does not indicate any symptoms associated with coronavirus-19. Ebola Screen: No symptoms or risks identified at this time. Initial Sepsis Screen: Does the patient meet any 2 criteria? No. Patient's initial sepsis screen is negative. Does the patient have a suspected source of infection? No. Patient's initial sepsis screen is negative. Risk Assessment: Do you want to hurt yourself or someone else? Patient reports no desire to harm self or others. Onset of symptoms was May 05, 2025. 10:19 Method Of Arrival: Ambulatory dd2 10:19 Acuity: MAIDA 3 dd2 Triage Assessment: 10:25 General: Appears in no apparent distress. well groomed, well developed, well nourished, dd2 Behavior is calm, cooperative, appropriate for age. Pain: Denies pain. Neuro: Level of Consciousness is awake, alert, obeys commands, Oriented to person, place, time, situation, Appropriate for age Leave Manager are equal bilaterally Moves all extremities. Gait is steady, Speech is normal, Facial symmetry appears normal, Pupils are PERRLA, Reports blurred vision since 05/05/2025 dizziness. Cardiovascular: Reports nausea, shortness of breath. Historical: - Allergies: 10:25 No Known Allergies; dd2 - PMHx: 10:25 PRE-DIABETIC; dd2 - PSHx: 10:25 None; dd2 - Immunization history:: Adult Immunizations up to date. - Infectious Disease History:: Denies. - Social history:: Smoking status: Patient denies any tobacco usage or history of. Screenin:53 [facility] ED Fall Risk Assessment (Adult) History of falling in the last 3 months, af3 including since admission No falls in past 3 months (0 pts) Confusion or Disorientation No (0 pts) Intoxicated or Sedated No (0 pts) Impaired Gait No (0 pts) Mobility Assist Device Used No (0 pt) Altered Elimination No (0 pt) Score/Fall Risk Level 0 - 2 = Low Risk Oriented to surroundings, Maintained a safe environment, Educated pt \T\ family on fall prevention, incl call for assistance when getting out of bed. Abuse screen: Denies threats or abuse. Denies injuries from another. Nutritional screening: No deficits noted. Tuberculosis screening: No symptoms or risk factors identified. Assessment: 10:50 General: Appears in no apparent distress. uncomfortable, well groomed, well developed, af3 Behavior is calm, cooperative, appropriate for age. Pain: Complains of pain in chest pressure Pain does not radiate. Pain began 2-3 days ago. Neuro: Level of Consciousness is awake, alert, obeys commands, Oriented to person, place, time, situation, Appropriate for age. Cardiovascular: Patient's skin is warm and dry. Respiratory: Airway is patent Respiratory effort is even, unlabored, Respiratory pattern is regular, symmetrical. 11:38 Reassessment: Patient appears in no apparent distress at this time. Patient and/or af3 family updated on plan of care and expected duration. Pain level reassessed. Patient is alert, oriented x 3, equal unlabored respirations, skin warm/dry/pink. 12:38 Reassessment: Patient appears in no apparent distress at this time. Patient and/or af3 family updated on plan of care and expected duration. Pain level reassessed. Patient is alert, oriented x 3, equal unlabored respirations, skin warm/dry/pink. 12:38 Reassessment: Patient appears in no apparent distress at this time. Patient and/or af3 family updated on plan of care and expected duration. Pain level reassessed. Patient is alert, oriented x 3, equal unlabored respirations, skin warm/dry/pink. Vital Signs: 10:19 BP 142 / 81; Pulse 70; Resp 16; Temp 98.1; Pulse Ox 99% on R/A; Weight 99.79 kg; Height dd2 5 ft. 9 in. ; Pain 0/10; 11:39 BP 101 / 86; Pulse 66; Resp 22; Pulse Ox 98% on R/A; af3 13:02 BP 134 / 86; Pulse 62; Resp 16; Pulse Ox 98% on R/A; iw 13:53 BP 122 / 83; Pulse 64; Resp 18; Pulse Ox 99% on R/A; af3 10:19 Body Mass Index 32.49 (99.79 kg, 175.26 cm) dd2 10:19 Pain Scale: Adult dd2 ED Course: 10:18 Patient arrived in ED. cj3 10:25 Triage completed. dd2 10:25 Arm band placed on right wrist. dd2 10:26 Kayden Beasley FNP-C is PHCP. dr5 10:26 Ray Holt MD is Attending Physician. dr5 10:29 Evelyn Delgado, RN is Primary Nurse. iw 10:53 CT Head Brain wo Cont In Process Unspecified. EDMS 10:53 Patient has correct armband on for positive identification. Bed in low position. Call af3 light in reach. Provided Education on: call light use . Client placed on continuous cardiac and pulse oximetry monitoring. NIBP monitoring applied. mastic worker on. Pulse ox on. NIBP on. 10:53 No provider procedures requiring assistance completed. Patient maintains SpO2 af3 saturation greater than 95% on room air. 11:12 Sonia Gallegos, RN is Primary Nurse. af3 13:54 IV discontinued, intact, bleeding controlled, No redness/swelling at site. Pressure af3 dressing applied. Administered Medications: 11:13 Drug: NS 0.9% IV 1000 ml IV at 1000 ml once; to be given as a bolus over 60 minutes af3 Route: IV; Rate: 1000 ml; Site: left antecubital; 13:52 Follow up: Response: No adverse reaction; IV Status: Completed infusion; IV Intake: af3 1000ml 13:01 Drug: NS 0.9% IV 1000 ml IV at 1000 ml once; to be given as a bolus over 60 minutes iw Route: IV; Rate: 1000 ml; Site: left antecubital; 13:52 Follow up: Response: No adverse reaction; IV Status: Completed infusion; IV Intake: af3 1000ml Medication: 13:54 VIS not applicable for this client. af3 Intake: 13:52 IV: 1000ml; Total: 1000ml. af3 13:52 IV: 1000ml; Total: 2000ml. af3 Outcome: 13:22 Discharge ordered by . dr5 13:53 Discharged to home ambulatory, with family, af3 13:53 Condition: stable 13:53 Discharge instructions given to patient, Instructed on discharge instructions, follow up and referral plans. Demonstrated understanding of instructions, follow-up care, 13:55 Patient left the ED. af3 Signatures: Dispatcher [employer] EDMS Evelyn Delgado RN RN iw Sonia Gallegos RN RN af3 DENA NAIDU RN RN dd2 Kayden Beasley, SALVAGE WINDER AND INSPECTOR-C SALVAGE WINDER AND INSPECTOR-Cdr5 Mariposa Thakkar cj3 Corrections: (The following items were deleted from the chart) 11:39 11:38 BP 237 / 105; Pulse 74bpm; Resp 18bpm; Pulse Ox 94% RA; af3 af3
--- NOTE | 2025-05-14 13:22 | EDPHYS ---
Physician Documentation [facility] Name: Vincent Kumari Age: 50 yrs Sex: Male : 1975 Arrival Date: 05/14/2025 Time: 10:14 Bed 13 Private MD: ED Physician Ray Holt HPI: 05/14 11:43 This 50 yrs old Male presents to ER via Ambulatory with complaints of dr5 Dizziness, Chest Pressure, Balance Instability. 11:43 The patient presents with dizziness, lightheadedness, feeling off balance. Onset: The dr5 symptoms/episode began/occurred 1 week(s) ago. Patient is a 50-year-old male with history of prediabetes coming in with dizziness that is worse in the morning and intermittent for the past week. Patient reports that he works outside and feels like he does not drink enough water. Patient denies chest pain, shortness of breath, abdominal pain. Patient also reports he had recent colonoscopy done in which he did take bowel prep which is when dizziness started. Patient denies dizziness, numbness or tingling during initial exam.. Historical: - Allergies: 10:25 No Known Allergies; dd2 - PMHx: 10:25 PRE-DIABETIC; dd2 - PSHx: 10:25 None; dd2 - Immunization history:: Adult Immunizations up to date. - Infectious Disease History:: Denies. - Social history:: Smoking status: Patient denies any tobacco usage or history of. ROS: 11:43 Constitutional: as per hpi dr5 Exam: 11:43 Constitutional: This is a well developed, well nourished patient who is awake, alert, dr5 and in no acute distress. Head/Face: Normocephalic, atraumatic. Eyes: Pupils equal round and reactive to light, extra-ocular motions intact. Lids and lashes normal. Conjunctiva and sclera are non-icteric and not injected. Cornea within normal limits. Periorbital areas with no swelling, redness, or edema. Neck: Trachea midline, no thyromegaly or masses palpated, and no cervical lymphadenopathy. Supple, full range of motion without nuchal rigidity, or vertebral point tenderness. No Meningismus. Chest/axilla: Normal chest wall appearance and motion. Nontender with no deformity. No lesions are appreciated. Cardiovascular: Regular rate and rhythm with a normal S1 and S2. Normal PMI, no JVD. No pulse deficits. Respiratory: Lungs have equal breath sounds bilaterally, clear to auscultation. No rales, rhonchi or wheezes noted. No increased work of breathing, no retractions or nasal flaring. Abdomen/GI: Soft, non-tender, non-distended Back: No spinal tenderness. No costovertebral tenderness. Full range of motion. Skin: Warm, dry with normal turgor. Normal color with no rashes, no lesions, and no evidence of cellulitis. MS/ Extremity: Pulses equal, no cyanosis. Neurovascular intact. Full, normal range of motion. 11:43 ENT: Nares patent. No nasal discharge, no septal abnormalities noted. Tympanic membranes are normal and external auditory canals are clear. Oropharynx with no redness, swelling, or masses, exudates, or evidence of obstruction, uvula midline. Mucous membranes moist. 11:43 Neuro: Orientation: is normal, appropriate for stated age, Mentation: is normal, appropriate for stated age, Memory: is normal, appropriate for stated age, Cranial nerves: CN II- XII are normal as tested, extraocular movements are intact, Facial palsy and sensory deficits are absent. no gross hearing deficit,. Nystagmus is absent. Speech is clear and appropriate. Tongue strength is normal, Cerebellar function: is grossly normal, is grossly normal based on the patient's age, Romberg testing is negative, normal finger to nose testing, heel to joiner testing is normal, Motor: is normal, moves all fours, Sensation: is normal, no obvious gross deficits, Gait: is steady, appropriate for age, Vital Signs: 10:19 BP 142 / 81; Pulse 70; Resp 16; Temp 98.1; Pulse Ox 99% on R/A; Weight 99.79 kg; Height dd2 5 ft. 9 in. ; Pain 0/10; 11:39 BP 101 / 86; Pulse 66; Resp 22; Pulse Ox 98% on R/A; af3 13:02 BP 134 / 86; Pulse 62; Resp 16; Pulse Ox 98% on R/A; iw 13:53 BP 122 / 83; Pulse 64; Resp 18; Pulse Ox 99% on R/A; af3 10:19 Body Mass Index 32.49 (99.79 kg, 175.26 cm) dd2 10:19 Pain Scale: Adult dd2 MDM: 10:26 Medical Screening Exam initiated dr5 13:52 Differential diagnosis: CVA, hypovolemia, near-syncope, syncope, TIA, vertigo, dr5 Dehydration, new onset diabetes, intracranial hemorrhage, brain mass, urinary tract infection. Data reviewed: vital signs, nurses notes, lab test result(s), cardiac enzymes, troponin i, CBC, white blood cell count, hemoglobin, hematocrit, platelets, electrolytes, sodium, potassium, chloride, serum bicarbonate, BUN, creatinine, serum glucose, urinalysis, EKG, radiologic studies, CT scan. Consideration of Admission/Observation Escalation of care including admission/observation considered. Escalation considered patient found to have intracranial hemorrhage or abnormalities noted on labs. I considered the following discharge prescriptions or medication management in the emergency department I discussed and recommended Over The Counter medications, Medications were administered in the Emergency Department. See MAR. Independent interpretation of the following test(s) in the Emergency Department CT Scan: My interpretation is Independent interpretation of CT does not reveal obvious brain bleed. Historians other than the Patient: Spouse/Significant Other: at bedside. Care significantly affected by the following Social Determinants of Health: Poor access to healthcare and/or lack of insurance, Poor access to transportation, Problems related to employment. Counseling: I had a detailed discussion with the patient and/or guardian regarding the historical points, exam findings, and any diagnostic results supporting the discharge/admit diagnosis, the presence of at least one elevated blood pressure reading (>120/80) during this emergency department visit, lab results, radiology results, the need for outpatient follow up, for definitive care, a family practitioner, to return to the emergency department if symptoms worsen or persist or if there are any questions or concerns that arise at home. Medication response: Normal saline x 2 L. Response to treatment: the patient's symptoms have resolved after treatment, the patient's condition has returned to base line, the patient is now symptom free. Special discussion: I discussed with the patient/guardian in detail that at this point there is no indication for admission to the hospital. It is understood, however, that if the symptoms persist or worsen the patient needs to return immediately for re-evaluation. Based on the history and exam findings, there is no indication for further emergent testing or inpatient evaluation. I discussed with the patient/guardian the need to see the primary care provider for further evaluation of the symptoms. ED course: Patient likely dehydrated given patient recently had colonoscopy with prep as well as working outside in the heat and not drinking of water. 2 L of fluid given with resolution of dizziness and all symptoms. Patient reports show much better. All labs and scans printed and given to patient's to take with him to primary care doctor. All questions answered. Strict ER precautions given.. 05/14 10:39 Order name: CBC with Diff; Complete Time: 11:19 dr5 05/14 10:39 Order name: High Sensitivity Troponin; Complete Time: 11: dr5 05/14 10:39 Order name: Protime (+inr); Complete Time: : dr5 05/14 10:39 Order name: Ptt, Activated; Complete Time: : dr5 05/14 10:39 Order name: CMP; Complete Time: 11: dr5 05/14 10:39 Order name: UA Rfx Spencer Cult if indicated; Complete Time: 11: dr5 05/14 10:39 Order name: CK; Complete Time: 11: dr5 05/14 10:39 Order name: CT Head Brain wo Cont; Complete Time: 11:43 dr5 05/14 10:39 Order name: Accucheck; Complete Time: 11: dr5 05/14 10:39 Order name: Cardiac monitoring; Complete Time: 10:49 dr5 05/14 10:39 Order name: EKG - Nurse/Tech; Complete Time: 10:49 dr5 05/14 10:39 Order name: IV Saline Lock; Complete Time: 11: dr5 05/14 10:39 Order name: Labs collected and sent; Complete Time: 11: dr5 05/14 10:39 Order name: NPO; Complete Time: 11: dr5 05/14 10:39 Order name: O2 Per Protocol; Complete Time: 10:49 dr5 05/14 10:39 Order name: O2 Sat Monitoring; Complete Time: 10:49 dr5 05/14 10:39 Order name: Stroke Swallow Screen; Complete Time: 11:12 dr5 EC:45 Rate is 63 beats/min. Rhythm is regular. QRS [place] is Normal. DE interval is normal at dr5 168 msec. QRS interval is normal at 90 msec. QT interval is normal at 392 msec. Clinical impression: Normal ECG and No evidence of ischemia. Administered Medications: 11:13 Drug: NS 0.9% IV 1000 ml IV at 1000 ml once; to be given as a bolus over 60 minutes af3 Route: IV; Rate: 1000 ml; Site: left antecubital; 13:52 Follow up: Response: No adverse reaction; IV Status: Completed infusion; IV Intake: af3 1000ml 13:01 Drug: NS 0.9% IV 1000 ml IV at 1000 ml once; to be given as a bolus over 60 minutes iw Route: IV; Rate: 1000 ml; Site: left antecubital; 13:52 Follow up: Response: No adverse reaction; IV Status: Completed infusion; IV Intake: af3 1000ml Disposition Summary: 05/14/25 13:22 Discharge Ordered Notes: Location: Home dr5 Condition: Stable dr5 Diagnosis - Dehydration dr5 Followup: dr5 - With: Emergency Department - When: As needed - Reason: Worsening of condition Followup: dr5 - With: Private Physician - When: 1 - 2 days - Reason: Recheck today's complaints, Continuance of care, Re-evaluation by your physician Discharge Instructions: - Discharge Summary Sheet dr5 - Dehydration, Adult dr5 Forms: - Medication Reconciliation Form dr5 - Patient Portal Instructions dr5 - Leadership Thank You Letter dr5 Signatures: Dispatcher [employer] Eveyln Dyer RN RN iw Fry, Ashley, RN RN af3 DENA NAIDU RN RN dd2 Kayden Beasley, ELISEO-C YARDER OPERATOR-5
[2025-05-14 13:59] VITALS: TEMP 98.1
[2025-05-14 14:03] VITALS: BP 122/83; O2SAT 99
== END 2025-05-14 13:55 | disposition home or self-care (01) ==
LOC: ER 10:14
DX: E86.0 Dehydration (principal); R73.03 Prediabetes
CPT/HCPCS: 96361; 93005; 85025; 36415; 82550; 85610; 85730; 81003; 84484; 80053; 70450; 96360; 99284; J7030 ×2